=== PATIENT | female | born 1975 | race Caucasian/White ===

== ENCOUNTER → 2017-01-30 | Outpatient (CLI) | payer OTHER ==
--- NOTE | ~2017-01-30 | 2DMMODE ---
[facility] [place] [address] 2 D/M-MODE ECHOCARDIOGRAM Name: JOSELEE K Room #: REG [facility]#: [id number] Admission: 01/30/17 Attend Phys: John Paul MD Discharge: Date of : 71 Date of Service: 01/30/17 1010 Report #: [id number] THIS REPORT FOR: //name// APPROVED REPORT EXAM: Comprehensive 2D, Doppler, and color-flow Echocardiogram Patient Location: Out-Patient Blood Pressure: 151/88 mmHg HR: 62 bpm Rhythm: NSR Other Information Study Quality: Good Indications Chest Pain Hx: HTN 2D Dimensions RVDd: 29.60 mm LVEF(%): 64.82 (>50%) IVSd: 9.30 (7-11mm) LVOT Diam: 21.20 (18-24mm) LVDd: 51.34 mm PWd: 9.15 (7-11mm) Ascending Aorta: 28.70 mm LVDs: 33.03 (25-40mm) Aortic Root: 31.00 mm Vigil's LVEF: 64.82 % Volumes Left Atrial Volume (Systole) Single Plane 4CH: 40.32 mL Single Plane 2CH: 56.29 mL LA ESV Index: 29.00 mL/m2 Aortic Valve AoV Peak Lloyd.: 1.39 m/s AO Peak Gr.: 7.69 mmHg LV Max P.39 mmHg LV Max: 0.92 m/s Mitral Valve MV PHT: 79.57 ms MV E Max Lloyd.: 0.81 m/s E/A Ratio: 1.7 MV A Lloyd.: 0.48 m/s MV Decel. Time: 274.38 ms [facility] [place] [address] [place] [address] 2 D/M-MODE ECHOCARDIOGRAM Name: LEE GARCIA Room #: REG [facility]#: [id number] Admission: 01/30/17 Attend Phys: John Paul MD Discharge: Date of : 71 Date of Service: 01/30/17 1010 Report #: [id number] TDI E/Lateral E': 7.00 E/Medial E': 6.00 Pulmonary Valve PV Peak Lloyd.: 1.00 m/s PV Peak Gr.: 3.99 mmHg Tricuspid Valve TR Peak Lloyd.: 2.54 m/s RAP Estimate: 5.00 mmHg TR Peak Gr.: 25.81 mmHg RVSP: 31.00 mmHg Left Ventricle The left ventricle is normal size. There is normal LV segmental wall motion. There is normal left ventricular wall thickness. Left ventricular systolic function is normal. LVEF is 60%. The left ventricular diastolic function is normal. Right Ventricle The right ventricle is normal size. The right ventricular systolic function is normal. Atria The left atrium size is normal. The right atrium size is normal. Aortic Valve The aortic valve is normal in structure. No aortic regurgitation is present. There is no aortic valvular stenosis. Mitral Valve The mitral valve is normal in structure. Trace mitral regurgitation. Tricuspid Valve The tricuspid valve is normal in structure. There is trace tricuspid regurgitation. The right atrial pressure is estimated at 5 mmHg. There is borderline pulmonary hypertension with an estimated PAP of 31mmHg. Pulmonic Valve The pulmonary valve is normal in structure. There is no pulmonic valvular regurgitation. Great Vessels The aortic root is normal in size. The ascending aorta is normal in size. IVC is normal in size and collapses >50% with inspiration. [facility] [address] [place] [address] 2 D/M-MODE ECHOCARDIOGRAM Name: LEE GARCIA Room #: REG [facility]#: [id number] Admission: 01/30/17 Attend Phys: John Paul MD Discharge: Date of : 71 Date of Service: 01/30/17 1010 Report #: [id number] Pericardium There is no pericardial effusion. <Conclusion> The left ventricle is normal size. Left ventricular systolic function is normal. The right ventricle is normal size. The left atrium size is normal. The aortic valve is normal in structure. Trace mitral regurgitation. There is trace tricuspid regurgitation. The right atrial pressure is estimated at 5 mmHg. There is borderline pulmonary hypertension with an estimated PAP of 31mmHg. <ELECTRONICALLY SIGNED> By: John Paul MD 01/30/17 1010 1010 1010 John Paul MD /INF
== END ==
LOC: CV 09:26
DX: R07.9 Chest pain, unspecified (principal); I10 Essential (primary) hypertension

== ENCOUNTER → 2018-10-15 | Outpatient (CLI) | payer BC, OTHER | LOC: RAD 01:08 | DX: Z12.31 Encounter for screening mammogram for malignant neoplasm of breast (principal) ==

== ENCOUNTER 2019-02-16 05:34 | Day surgery (SDC) | payer BC ==
[~2019-02-16] VITALS: Ht 162.6 cm; Wt 80.3 kg
[~2019-02-16 05:34] MED LIST: IBUPROFEN 600600 M1 PO
[2019-02-16 13:07] VITALS: BP 143/88
[2019-02-16 16:52] VITALS: BP 143/88
--- NOTE | 2019-02-16 17:03 | EKG ---
[address] [place] [place] [address] ELECTROCARDIOGRAM REPORT Name: LEE GARCIA Room #: 150-1 [facility]#: [id number] ������������������ Admission: 02/16/19 ������������������ Attend Phys: Henrique Milner MD Discharge: ������������������ Date of : 71 Report #: [id number] ����������������������������������������������������������������� [id number] THIS REPORT FOR: //name// [facility] Test Date: 2019-02-16 Test Time: 12:33:11 Pat Name: LEE GARCIA Department: Room: 150 Gender: F Building Equipment Operator: USHA : 1975 Requested By: Henrique Milner Order Number: [id number] MD: Jacinto Osborne Measurements Intervals Britt Rate: 60 P: 9 MD: 134 QRS: 13 QRSD: 105 T: 15 QT: 433 QTc: 433 Interpretive Statements Sinus rhythm Abnormal R-wave progression, late transition Probable left ventricular hypertrophy No previous ECG available for comparison Electronically Signed On 02-16-2019 17:03:09 CDT by Jacinto Osborne [email or web address] ��������������������������������������������� <ELECTRONICALLY SIGNED> ���������������������������������������� By: Jacinto Osborne MD, [facility] ��������������������������������������������� 02/16/19 1703 1233 [id number] Jacinto Osborne MD, FACC /EPI
--- NOTE | 2019-02-17 10:20 | O ---
[address] [address] OPERATIVE REPORT Name: LEE GARCIA Room #: DEP [facility].#: [id number] Admission: 02/16/19 ������������������ Attend Phys: Henrique Milner MD Discharge: 02/16/19 ������������������ Date of : 71 Report #: [id number] THIS REPORT FOR: //name// CC: Savana Milner DATE OF SERVICE: 02/16/2019 SERVICE: Orthopedics. FACILITY: [facility]. SURGEON: Henrique Milner MD ENVIRONMENTAL ENGINEERING AIDE: Gianna Delacruz NP PREOPERATIVE DIAGNOSES: 1. Right shoulder fracture dislocation. 2. Right shoulder bony Bankart injury. 3. Right shoulder nondisplaced greater tuberosity fracture. POSTOPERATIVE DIAGNOSES: 1. Right shoulder fracture dislocation. 2. Right shoulder bony Bankart injury. 3. Right shoulder nondisplaced greater tuberosity fracture. PROCEDURES: 1. Right shoulder arthroscopy with bony Bankart & labral repair. 2. Right shoulder extensive arthroscopic debridement, with loose body removal. 3. Closed treatment, right humerus greater tuberosity fracture. COMPLICATIONS: None. DRAINS: None. SPECIMENS: None. ANESTHESIA TYPE: General with regional. FINDINGS: 1. A highly comminuted anterior bony Bankart lesion incorporated into the labral repair. 2. Young [employer] Nephew Q-Fix suture anchor x 5. 3. Partial thickness HAGL lesion, treated nonoperatively. 4. Nondisplaced greater tuberosity fracture, treated nonoperatively. [address] [address] OPERATIVE REPORT Name: LEE GARCIA Room #: DEP [facility]#: [id number] Admission: 02/16/19 ������������������ Attend Phys: Henrique Milner MD Discharge: 02/16/19 ������������������ Date of : 71 Report #: [id number] HISTORY: The patient is a 44-year-old female who was in [place] and sustained snow skiing injury, which resulted in the right shoulder fracture dislocation. She had nondisplaced greater tuberosity fracture and a bony Bankart fracture injury to the glenoid. We had discussion about optimal treatment measures and obtained advanced imaging. I explained the risks, benefits, alternatives and indications for surgical treatment and we discussed arthroscopic versus open measures. I recommended based on her age and activity level and physical demands, an arthroscopic approach with fixation as able with possibility of converting to open based on pathology as encountered. The patient gave full informed consent and wished to proceed. Risks, benefits, alternatives and indications surgical was discussed with her. Risks include but not limited to pain, bleeding, infection, injury to nerves or blood vessels, persistent pain despite surgical intervention. Recurrent instability, need for further surgery including revision as well as complications related to anesthesia such as stroke, heart attack, pulmonary complications, thromboembolic disease and . Despite these risks, agreed to proceed. PROCEDURE IN DETAIL: After right upper extremity was correctly identified in the preoperative holding area as the operative extremity, the patient had placement of a single shot regional nerve block. She was then taken to the operating room where general anesthesia was induced without complication. She was turned to the lateral decubitus position with the right side up, left side down and was padded appropriately. Prophylactic antibiotics were administered at appropriate time. Examination under anesthesia did not demonstrate any gross instability. There was some subtle crepitus anterior inferiorly secondary to the bony Bankart, but again no gross glenohumeral instability. Right arm was then prepped and draped in standard sterile fashion. Time-out procedure was performed. Standard posterior viewing portal was established. Diagnostic arthroscopy revealed intact rotator cuff including supraspinatus, infraspinatus and subscapularis. The biceps tendon was normal as was the biceps sling. The articular cartilage overall was normal and there was no evidence of humeral Hill-Sachs lesion. There was a comminuted bony Bankart lesion, but overall the surface area of the glenoid was fairly well maintained. There was not an inverted pear orientation. There was one cortical rim that measured 30 mm in length and 4 mm in width and this was freely floating and this was excised with a grasper as a loose body excision. Shaver was used to resect the fracture hematoma as well as some very small pieces of bony debris, secondary comminution that was on the order of a millimeter or less in size. This was resected with the shaver. Shaver was then used to develop the labral tear plain and clean the anterior glenoid and the glenoid neck. A grasper was used to assess the reducibility of the bony Bankart lesion as it was quite mobile after being prepared. The first anchor was placed at the 4:30 position and a simple suture was placed as far inferiorly as possible, which reset the anterior inferior [address] [address] OPERATIVE REPORT Name: JOSELEE Room #: DEP [facility] Pk#: [id number] Admission: 02/16/19 ������������������ Attend Phys: Henrique Milner MD Discharge: 02/16/19 ������������������ Date of : 71 Report #: [id number] glenohumeral ligament tension. A second anchor was placed at the 4 o'clock position and a second simple suture placed again to reinforce this anterior-inferior location. The third anchor was placed with a mattress suture type configuration. This was placed medial on the glenoid face so as to incorporate a double row type of construct, which was then passed in front of the bony Bankart fragment with a mattress suture that pulled the more medial ligamentous tissues against the glenoid. The fourth anchor was then placed working up the front and the fifth anchor placed to reinforce the repair with a simple stitch suture on the fourth anchor and a vertical mattress type construct on the fifth anchor which provided good apposition of the capsule labral structures in the anatomic position. The shoulder as well centered at this point. There was no significant posterior labral or inferior labral pathology otherwise. Synovitis was resected with the shaver posteriorly and a limited amount of chondromalacia was resected with the shaver on the glenoid and then final debridement was completed with the shaver and the instruments were removed from the shoulder portals. Portal sites were closed. Sterile dressing was applied. The patient was placed back in her abduction pillow sling. She was awakened from Anesthesia and taken to recovery room in stable condition. No complications. All counts correct. ��������������������������������������������� <ELECTRONICALLY SIGNED> ���������������������������������������� By: Henrique Milner MD ��������������������������������������������� 02/17/19 1020 [id number] [id number] Henrique Milner MD /nt
== END 2019-02-16 19:10 | disposition home or self-care (01) ==
LOC: OR 05:34 → TBA 05:35 → OR 09:32
DX: S43.014A Anterior dislocation of right humerus, initial encounter (principal); S42.254A Nondisplaced fracture of greater tuberosity of right humerus, initial encounter for closed fracture; S43.491A Other sprain of right shoulder joint, initial encounter; M24.011 Loose body in right shoulder; M94.211 Chondromalacia, right shoulder; Z88.6 Allergy status to analgesic agent; Z98.890 Other specified postprocedural states; Z98.51 Tubal ligation status; X58.XXXA Exposure to other specified factors, initial encounter; Y93.89 Activity, other specified; Y92.89 Other specified places as the place of occurrence of the external cause; Y99.8 Other external cause status
CPT/HCPCS: 50010; 50101; 50172; 50386; 50417; 50950; 51320; 51445; 52001; 52282; 52313; 53610; 54170; 55430; 56527; 56617; 57103; 62110; 62900; 64043; 65060; 70005

== ENCOUNTER → 2019-10-19 | Outpatient (CLI) | payer OTHER | LOC: RAD 07:53 | DX: Z12.31 Encounter for screening mammogram for malignant neoplasm of breast (principal) ==